=== PATIENT | female | born 1980 | race Caucasian/White ===

== ENCOUNTER 2022-10-28 11:51 | Outpatient (CLI) | payer BC, SELFPAY ==
[2022-10-28 07:56] LABS: Hematocrit 44.1 % (33.0-51.0); Hemoglobin* 14.8 gm/dL (12.0-16.0); Mean Corpuscular HGB Conc 34 gm/dL (32-36); Mean Corpuscular Hemoglobin 29 pg (26-34); Mean Corpuscular Volume 85 fL (80-100); Platelet Count* 321 K/uL (140-440); White Blood Count* 5.06 K/uL (4.50-11.00)
[2022-10-28 08:03] LABS: Slide Review Reflex No
[2022-10-28 15:12] LABS: Chloride* 103 mmol/L (96-114); Sodium* 140 mmol/L (135-149)
[2022-10-28 15:13] LABS: Potassium* 4.8 mmol/L (3.6-5.1)
[2022-10-28 15:15] LABS: Carbon Dioxide* 29 mmol/L (20-32); Cholesterol* 234 mg/dL (90-199); Creatinine* 0.7 mg/dL (0.5-1.5); Estimated Glomerular Filt Rate 110 ml/min
[2022-10-28 15:16] LABS: Blood Urea Nitrogen* 8 mg/dL (5-24); Calcium* 9.9 mg/dL (8.4-10.6); Glucose* 90 mg/dL (60-115); HDL Cholesterol* 71 mg/dL (>=50); LDL Cholesterol Calculated 138 mg/dL (<100); Triglycerides* 127 mg/dL (40-149)
== END 2022-10-28 11:52 | disposition home or self-care (01) ==
PROVIDERS: PCP Physician Assistant Medical; Visit Provider Physician Assistant Medical
DX: Z00.00 Encounter for general adult medical examination without abnormal findings (principal); E55.9 Vitamin D deficiency, unspecified
CPT/HCPCS: 80048; 80061; 85027

== ENCOUNTER 2023-01-04 16:00 | Outpatient (RCR) | payer BC, SELFPAY | END 2023-01-05 14:29 | disposition home or self-care (01) | PROVIDERS: PCP Physician Assistant Medical; Visit Provider Physician Assistant Medical | DX: M25.511 Pain in right shoulder (principal); M25.552 Pain in left hip; Z51.89 Encounter for other specified aftercare | CPT/HCPCS: 97110; 97140; 97161 ==

== ENCOUNTER 2023-07-28 14:38 | Outpatient (CLI) | payer BC, SELFPAY | END 2023-07-28 14:39 | disposition home or self-care (01) | PROVIDERS: PCP Physician Assistant Medical; Visit Provider Physician Assistant Medical | DX: E55.9 Vitamin D deficiency, unspecified (principal); R79.0 Abnormal level of blood mineral; R53.83 Other fatigue; E53.8 Deficiency of other specified B group vitamins | CPT/HCPCS: 82306; 82607; 82728; 84443 ==

== ENCOUNTER 2023-10-31 09:05 | Outpatient (CLI) | payer BC, SELFPAY | END 2023-10-31 09:06 | disposition home or self-care (01) | LOC: NFLDREF 11-01 10:53 | PROVIDERS: PCP Physician Assistant Medical; Referring Provider Physician Assistant Medical; Visit Provider Physician Assistant Medical | DX: E55.9 Vitamin D deficiency, unspecified (principal); R79.0 Abnormal level of blood mineral; Z13.6 Encounter for screening for cardiovascular disorders; Z13.9 Encounter for screening, unspecified | CPT/HCPCS: 80053; 80061; 82306; 82728 ==

== ENCOUNTER 2023-11-30 12:50 | Outpatient (CLI) | payer BC, SELFPAY ==
--- NOTE | 2023-11-30 13:00 | CRLHL7_ITS ---
For Patients: As a result of the Century Cures Act, medical imaging exams and procedure reports are released immediately into your electronic medical record. You may view this report before your referring provider. If you have questions, please contact your health care provider. INDICATION: Excessive infrequent bleeding TECHNIQUE: Transabdominal and transvaginal scanning was performed. Transvaginal scanning was performed to optimally evaluate the endometrium and adnexa. Ovarian blood flow was evaluated with color-flow and pulsed Doppler. COMPARISON: None. FINDINGS: The uterus is normal in size and shape. The uterus measures 10.9 x 4.7 x 4.7 cm. An intramural 1.7 x 1.6 x 1.6 cm fibroid is demonstrated anterolaterally on the right at the junction of the body and fundus. Several cystic foci within this lesion raise question of degeneration. The endometrial stripe is normal in thickness at 14 mm. The ovaries are normal in appearance. The right ovary measures 4.0 x 2.2 x 1.4 cm and left 3.5 x 2.3 x 1.7 cm. Ovarian blood flow is demonstrated with color-flow and pulsed Doppler. No adnexal mass is evident. No free fluid is demonstrated. IMPRESSION: 1. Normal-thickness endometrial stripe at 14 mm. 2. Intramural 1.7 x 1.6 x 1.6 cm fibroid anterolaterally on the right at the junction of the body and fundus. Several cystic foci within this lesion raise question of degeneration. Dictated by Mak Hughes MD @ 12/01/2023 4:43:03 PM (Electronically Signed)
== END 2023-11-30 12:51 | disposition home or self-care (01) ==
LOC: US 12:50
PROVIDERS: PCP Physician Assistant Medical; Visit Provider Physician Assistant Medical
DX: N92.0 Excessive and frequent menstruation with regular cycle (principal); D25.1 Intramural leiomyoma of uterus
CPT/HCPCS: 76830; 76856

== ENCOUNTER 2024-09-10 08:02 | Outpatient (CLI) | payer BC, SELFPAY ==
--- NOTE | 2024-09-10 09:46 | W.ANESCHARGE ---
Anesthesia Charges Start Date/Time Anesthesia Start Date: 09/10/24 Anesthesia Start Time: 08:52 Stop Date/Time Anesthesia Stop Date: 09/10/24 Anesthesia Stop Time: 09:44
== END 2024-09-10 08:03 | disposition home or self-care (01) ==
LOC: OP CLINIC 08:02
PROVIDERS: PCP Physician Assistant Medical; Visit Provider Surgery
DX: Z12.11 Encounter for screening for malignant neoplasm of colon (principal); D12.0 Benign neoplasm of cecum; D12.2 Benign neoplasm of ascending colon; D12.3 Benign neoplasm of transverse colon
CPT/HCPCS: 00811; 45380; 45381; 45385; 88305; J2704

== ENCOUNTER 2024-10-26 12:45 | Outpatient (CLI) | payer BC, SELFPAY ==
--- NOTE | 2024-10-26 13:00 | CRLHL7_ITS ---
For Patients: As a result of the Century Cures Act, medical imaging exams and procedure reports are released immediately into your electronic medical record. You may view this report before your referring provider. If you have questions, please contact your health care provider. BILATERAL SCREENING MAMMOGRAM WITH COMPUTER-AIDED DETECTION AND TOMOSYNTHESIS TECHNIQUE: CC and MLO views were obtained. These mammographic images have been obtained using full-field digital technique. These mammographic images were interpreted with the benefit of computer-aided detection. Breast Tomosynthesis was used in this interpretation. COMPARISON FILM: 04/20/23, 05/12/22, 03/20/21. FINDINGS: The breasts are heterogeneously dense, which may obscure small masses IMPRESSION: There is no radiographic evidence for malignancy. ASSESSMENT: BI-RADS Category 2: Benign RECOMMENDATION: Routine screening mammogram in 1 year. A lay language report of this examination will be provided to the patient. Alexis Breen M.D. Diagnostic Radiologist [email or web address] Transcribed: 3:43 [email or web address] durand/Dictated by: Alexis Breen MD @ 10/30/2024 10:46:00 AM (Electronically Signed)
== END 2024-10-26 12:46 | disposition home or self-care (01) ==
LOC: MAMMO 12:45
PROVIDERS: PCP Physician Assistant Medical; Visit Provider Physician Assistant Medical
DX: Z12.31 Encounter for screening mammogram for malignant neoplasm of breast (principal); R92.333 Mammographic heterogeneous density, bilateral breasts
CPT/HCPCS: 77063; 77067

== ENCOUNTER 2024-11-27 07:38 | Outpatient (CLI) | payer BC, SELFPAY | END 2024-11-27 07:39 | disposition home or self-care (01) | LOC: NFLDREF 11-28 01:55 | PROVIDERS: PCP Physician Assistant Medical; Referring Provider Physician Assistant Medical; Visit Provider Physician Assistant Medical | DX: R79.0 Abnormal level of blood mineral (principal); E55.9 Vitamin D deficiency, unspecified; Z13.220 Encounter for screening for lipoid disorders; Z13.29 Encounter for screening for other suspected endocrine disorder | CPT/HCPCS: 80053; 80061; 82306; 82728; 84443 ==

== ENCOUNTER 2025-08-21 08:13 | Outpatient (CLI) | payer BC, SELFPAY | END 2025-08-21 08:14 | disposition home or self-care (01) | LOC: NFLDREF 08-23 13:53 | PROVIDERS: PCP Physician Assistant Medical; Referring Provider Physician Assistant Medical; Visit Provider Physician Assistant Medical | DX: Z01.818 Encounter for other preprocedural examination (principal) | CPT/HCPCS: 80048 ==